=== PATIENT | female | born 1980 | race Asian ===

== ENCOUNTER 2023-07-16 22:30 | Emergency (ER) | payer SELFPAY ==
[~2023-07-16] VITALS: Ht 162.6 cm; Wt 65.8 kg
[2023-07-16 22:40] VITALS: BP 122/75; PULSE 91; RESP 18; TEMP 98.2; O2SAT 98
[2023-07-16 23:29] LABS: APPEARANCE,URINE CLEAR (CLEAR); BILIRUBIN,URINE 1+ (NEGATIVE); BLOOD, URINE NEGATIVE (NEGATIVE); COLOR,URINE YELLOW (YELLOW); LEUKOCYTE ESTERASE ,URINE TRACE (NEGATIVE); NITRITE, URINE NEGATIVE (NEGATIVE); PROTEIN,URINE TRACE (NEGATIVE); UGLUCOSE NEGATIVE (NEGATIVE)
[2023-07-16 23:34] LABS: ICTOTEST POSITIVE (NEGATIVE)
[2023-07-16 23:35] LABS: BACTERIA,URINE >30 (MANY) /HPF (None Seen); MUCUS,URINE 1+ /LPF (None Seen); RBC,URINE 0-5 /HPF (0-5); SQUAMOUS EPITHELIAL CELL,UR 4-10 (MOD) /LPF (0-3 (FEW))
[2023-07-16] MEDS: ONDANSETRON 4 MG/2 ML VIAL IVP ONE (23:55)
[2023-07-16] MEDS: NACL 0.9% 1,000 ML IV ONE (23:55)
[2023-07-17 00:12] LABS: BASOPHILS % (AUTO) 0.2 % (0.0-2.0); EOSINOPHILS % (AUTO) 0.1 % (0.0-4.0); HEMATOCRIT 36.8 % (36-48); HEMOGLOBIN 13.2 g/dL (12.0-16.0); LYMPHOCYTES # (AUTO) 2.6 K/uL (2.5-16.5); LYMPHOCYTES % (AUTO) 24.1 % (20.5-51.1); MEAN CORPUSCULAR HEMOGLOBIN 32 pg (27-31); MEAN CORPUSCULAR HGB CONC 36 g/dL (33-37); MEAN CORPUSCULAR VOLUME 90.4 fL (80-94); MONOCYTES # (AUTO) 0.6 K/uL (0.8-1.0); MONOCYTES % (AUTO) 5.6 % (1.7-9.3); NEUTROPHILS # (AUTO) 7.5 K/uL (1.8-7.7); PLATELET COUNT (AUTO) 235 K/uL (140-450); RED BLOOD CELL COUNT(AUTO) 4.07 MIL/uL (4.20-5.40); RED CELL DISTRIBUTION WIDTH 12.6 % (11.6-13.7); WHITE BLOOD COUNT (AUTO) 10.7 K/uL (4.8-10.8)
[2023-07-17 00:26] LABS: ANION GAP 16.8 (8-16); CALCIUM 9.6 mg/dL (8.5-10.1); CARBON DIOXIDE 20.8 mmol/L (21-32); CREATININE 0.7 mg/dL (0.6-1.3); POTASSIUM 3.6 mmol/L (3.5-5.1)
[2023-07-17] MEDS ORDERED: cefTRIAXone 1,000 MG VIAL ONE (00:26)
[2023-07-17 00:33] LABS: ALBUMIN 4.2 g/dL (3.4-5.0); BILIRUBIN,DIRECT 0.3 mg/dL (0.0-0.3); PHOSPHORUS 3.3 mg/dL (2.5-4.9); TOTAL BILIRUBIN 1.2 mg/dL (0.0-1.0); TOTAL PROTEIN, SERUM 8.1 g/dL (6.4-8.2)
[2023-07-17] MEDS ORDERED: DOXY1TCP PO (01:10)
[2023-07-17] MEDS ORDERED: CEPH-588 PO (01:10)
[2023-07-17 01:28] VITALS: BP 108/72; PULSE 88; RESP 18; TEMP 98.2; O2SAT 98
== END 2023-07-17 01:28 | disposition home or self-care (01) ==
LOC: MED 22:30
DX: O23.41 Unspecified infection of urinary tract in pregnancy, first trimester (principal); O21.8 Other vomiting complicating pregnancy; O26.811 Pregnancy related exhaustion and fatigue, first trimester; R42 Dizziness and giddiness; Z79.899 Other long term (current) drug therapy; Z3A.08 8 weeks gestation of pregnancy
CPT/HCPCS: 36415; 80048; 80076; 81001; 81025; 83690; 83735; 84100; 85025; 87086; 93005; 96361; 96365; 96375; 99284; J0696; J2405; J7030

== ENCOUNTER 2023-08-03 15:02 | Emergency (ER) | payer MEDICAID ==
[~2023-08-03] VITALS: Ht 165.1 cm; Wt 61.2 kg
[~2023-08-03 15:02] MED LIST: CEPH-588 PO; DOXY1TCP PO
[2023-08-03 15:40] VITALS: BP 113/55; PULSE 87; RESP 14; TEMP 97.6; O2SAT 99
[2023-08-03] MEDS: NACL 0.9% 1,000 ML IV SCH (16:22)
[2023-08-03] MEDS: ONDANSETRON 4 MG/2 ML VIAL IVP ONE ×2 (16:29→19:10)
[2023-08-03] MEDS: FAMOTIDINE 20 MG/2 ML VIAL IVP ONE (16:31)
[2023-08-03 16:36] LABS: BILIRUBIN,URINE 1+ (NEGATIVE); BLOOD, URINE NEGATIVE (NEGATIVE); COLOR,URINE YELLOW (YELLOW); LEUKOCYTE ESTERASE ,URINE TRACE (NEGATIVE); NITRITE, URINE NEGATIVE (NEGATIVE); PROTEIN,URINE 2+ (NEGATIVE); UGLUCOSE NEGATIVE (NEGATIVE)
[2023-08-03 16:37] LABS: APPEARANCE,URINE SLIGHTLY HAZY (CLEAR)
[2023-08-03 16:38] LABS: ICTOTEST POSITIVE (NEGATIVE)
[2023-08-03 16:39] LABS: BACTERIA,URINE 1+ /HPF (None Seen); RBC,URINE 0-5 /HPF (0-5); SQUAMOUS EPITHELIAL CELL,UR 4-10 (MOD) /LPF (0-3 (FEW)); WBC,URINE 0-5 /HPF (0-5)
[2023-08-03 16:40] LABS: COARSE GRANULAR CASTS,URINE 0-10 /LPF (None Seen)
[2023-08-03 16:56] LABS: BASOPHILS % (AUTO) 0.2 % (0.0-2.0); EOSINOPHILS % (AUTO) 0.1 % (0.0-4.0); HEMATOCRIT 29.7 % (36-48); HEMOGLOBIN 10.7 g/dL (12.0-16.0); LYMPHOCYTES # (AUTO) 1.4 K/uL (2.5-16.5); LYMPHOCYTES % (AUTO) 18.5 % (20.5-51.1); MEAN CORPUSCULAR HEMOGLOBIN 32 pg (27-31); MEAN CORPUSCULAR HGB CONC 36 g/dL (33-37); MEAN CORPUSCULAR VOLUME 89.8 fL (80-94); MONOCYTES # (AUTO) 0.5 K/uL (0.8-1.0); MONOCYTES % (AUTO) 6.8 % (1.7-9.3); NEUTROPHILS # (AUTO) 5.5 K/uL (1.8-7.7); NEUTROPHILS % (AUTO) 74.4 % (42.2-75.2); PLATELET COUNT (AUTO) 224 K/uL (140-450); RED BLOOD CELL COUNT(AUTO) 3.31 MIL/uL (4.20-5.40); RED CELL DISTRIBUTION WIDTH 13.5 % (11.6-13.7); WHITE BLOOD COUNT (AUTO) 7.4 K/uL (4.8-10.8)
[2023-08-03 17:10] LABS: ANION GAP 18.8 (8-16); CALCIUM 8.8 mg/dL (8.5-10.1); CARBON DIOXIDE 16.5 mmol/L (21-32); CREATININE 0.5 mg/dL (0.6-1.3); POTASSIUM 3.3 mmol/L (3.5-5.1)
[2023-08-03 17:17] LABS: ALBUMIN 3.5 g/dL (3.4-5.0); BILIRUBIN,DIRECT 0.4 mg/dL (0.0-0.3); TOTAL BILIRUBIN 0.9 mg/dL (0.0-1.0); TOTAL PROTEIN, SERUM 7.1 g/dL (6.4-8.2)
[2023-08-03] MEDS ORDERED: FAMO-92 PO (17:54)
[2023-08-03] MEDS ORDERED: POTASSIUM CHLORIDE 10 MEQ TABER PO ONE (19:25)
[2023-08-03] MEDS ORDERED: ALUMINUM HYD/MAG/SIMETHICONE 30 ML UDC ONE (19:36)
[2023-08-03] MEDS: POTASSIUM CHLORIDE 10 MEQ TABER PO ONE (19:50)
[2023-08-03] MEDS: ALUMINUM HYD/MAG/SIMETHICONE 30 ML UDC PO ONE (19:53)
[2023-08-03 20:10] VITALS: BP 111/67; PULSE 78; RESP 12; TEMP 98; O2SAT 100
== END 2023-08-03 20:10 | disposition home or self-care (01) ==
LOC: MED 15:02
DX: O21.9 Vomiting of pregnancy, unspecified (principal); R10.13 Epigastric pain; R07.9 Chest pain, unspecified; Z79.1 Long term (current) use of non-steroidal anti-inflammatories (NSAID); Z3A.12 12 weeks gestation of pregnancy; Z79.899 Other long term (current) drug therapy
CPT/HCPCS: 36415; 80048; 80076; 81001; 82948; 83690; 85025; 96361; 96374; 96375; 96376; 99284; J2405; J3490; J7030

== ENCOUNTER 2023-10-07 23:35 | Observation (INO) | payer MEDICAID ==
[~2023-10-07] VITALS: Ht 165.1 cm; Wt 64.0 kg
[~2023-10-07 23:35] MED LIST changes: +FAMO-92 PO
[2023-10-07 23:45] VITALS: BP 101/59; PULSE 72; RESP 17; TEMP 98.1
[2023-10-08] MEDS ORDERED: ZOFRAN (00:55)
== END 2023-10-08 01:55 | disposition home or self-care (01) ==
LOC: MLD 23:35
PROVIDERS: ADMIT Obstetrics & Gynecology; ATTEND Obstetrics & Gynecology
DX: O26.892 Other specified pregnancy related conditions, second trimester (principal); R10.30 Lower abdominal pain, unspecified; Z3A.21 21 weeks gestation of pregnancy
CPT/HCPCS: G0378